=== PATIENT | female | born 1955 | race Caucasian/White ===

== ENCOUNTER 2018-06-01 09:27 | Emergency (ER) | payer MEDICAID, OTHER ==
[~2018-06-01] VITALS: Ht 162.6 cm; Wt 65.0 kg
[2018-06-01] MEDS ORDERED: TRAMADOL 50MG TABLET PO ONE (10:30)
[2018-06-01 14:34] VITALS: BP 130/58
== END 2018-06-01 14:39 | disposition home or self-care (01) ==
LOC: ER 09:27
DX: S09.8XXA Other specified injuries of head, initial encounter (principal); M54.2 Cervicalgia; M54.6 Pain in thoracic spine; M54.5 Low back pain; M25.512 Pain in left shoulder; M25.511 Pain in right shoulder; W01.0XXA Fall on same level from slipping, tripping and stumbling without subsequent striking against object, initial encounter; Y93.89 Activity, other specified; Y92.9 Unspecified place or not applicable
CPT/HCPCS: 72070; 72100; 73030; 99284